=== PATIENT | male | born 1965 | race Asian ===

== ENCOUNTER 2021-09-27 08:16 | Emergency (ER) | payer MEDICAID ==
[~2021-09-27] VITALS: Ht 172.7 cm; Wt 79.4 kg
[2021-09-27 08:52] VITALS: BP_SYST 159
--- NOTE | 2021-09-27 08:52 | NUR ---
Patient to ER bed 6 to gown for evaluation. Side rails up. Report given to DMITRIY LOCKWOOD.
--- NOTE | 2021-09-27 08:56 | NUR ---
PT PRESENTED TO THE ER WITH SLIGHT HEADACHE AND COMPLAINT OF HYPERTENISON WITH INITIATED THIS AM. PT TOOK MEDS AND BP DECREASED AND HEADACHE WELL /. PT WAS DRIVEN TO ER BY SON WHO IS AT BED SIDE. PT DENIES ANY CHEST PAIN. OR SHORTNESS OF BREATH VS ARE WITHIN NORMAL LIMITS. PT IS IN BED WITH BED LOWERED, LOCKED AND RAILS UP
[2021-09-27 09:42] LABS: BASOPHILS # (AUTO) 0.1 K/uL (0.0-0.2); BASOPHILS % (AUTO) 0.9 % (0.0-2.0); EOSINOPHILS # (AUTO) 0.1 K/uL (0.0-0.4); EOSINOPHILS % (AUTO) 1.7 % (0.0-4.0); HEMATOCRIT 41.3 % (36-54); HEMOGLOBIN 14.7 g/dL (14.0-18.0); LYMPHOCYTES # (AUTO) 1.7 K/uL (1.0-5.5); MEAN CORPUSCULAR HEMOGLOBIN 32 pg (27-31); MEAN CORPUSCULAR HGB CONC 36 % (32-36); MEAN CORPUSCULAR VOLUME 90 fL (79.0-98.0); MONOCYTES # (AUTO) 0.4 K/uL (0.0-1.0); MONOCYTES % (AUTO) 5.3 % (1.7-9.3); NEUTROPHILS # (AUTO) 4.5 K/uL (1.8-7.7); NEUTROPHILS % (AUTO) 67.1 % (40.0-70.0); PLATELET COUNT (AUTO) 264 K/uL (130-430); RED BLOOD CELL COUNT(AUTO) 4.62 MIL/uL (4.2-6.2); RED CELL DISTRIBUTION WIDTH 13.5 % (9.0-15.0); WHITE BLOOD COUNT (AUTO) 6.7 K/uL (4.8-10.8)
[2021-09-27 09:51] LABS: ANION GAP 4 (5-15); CHLORIDE 108 mmol/L (98-107); CREATININE 0.78 mg/dL (0.55-1.30); GLUCOSE 110 mg/dL (70-99); POTASSIUM 4.1 mmol/L (3.5-5.1); SODIUM SERUM 140 mmol/L (136-145); UREA NITROGEN, BLOOD 12 mg/dL (8-21)
[2021-09-27 10:00] LABS: ALANINE AMINOTRANSFERASE 16 U/L (12-78); ALBUMIN 3.2 g/dL (3.4-4.8); ASPARTATE AMINOTRANSFERASE 20 U/L (10-37); GFR AFRICAN AMERICAN 132 mL/min (>90); TOTAL BILIRUBIN 0.3 mg/dL (0.0-1.0)
--- NOTE | 2021-09-27 13:34 | NUR ---
DR. LEDESMA AT BEDSIDE.
--- NOTE | 2021-09-27 14:15 | NUR ---
Patient given written and verbal discharge instructions and verbalizes understanding. ER MD discussed with patient the results and treatment provided. Patient in stable condition. ID arm band removed. NO Rx given. Patient educated on pain management and to follow up with PMD. Pain Scale 0. Opportunity for questions provided and answered. Medication side effect fact sheet provided.
[2021-09-27 17:53] VITALS: BP_SYST 145
== END 2021-09-27 14:15 | disposition home or self-care (01) ==
LOC: SED 08:16
DX: I16.0 Hypertensive urgency (principal); I10 Essential (primary) hypertension; Z79.899 Other long term (current) drug therapy
CPT/HCPCS: 36415; 80053; 83880; 84484; 85025; 93005; 99284